=== PATIENT | female | born 1990 ===

== ENCOUNTER 2016-06-04 20:14 | Emergency (ER) | payer OTHER ==
[2016-06-04 20:27] VITALS: RESP 18
--- NOTE | 2016-06-04 21:08 | ED ---
Skin/Abscess/FB HPI - General Chief complaint: Skin/Abscess/Foreign Body Stated complaint: Abcess Time Seen by Provider: 06/04/16 20:55 Source: patient, RN notes reviewed Mode of arrival: ambulatory Limitations: no limitations - History of Present Illness Initial comments: Patient is a [age]-year-old female with a chief complaint of the lateral abscess. Patient reports that she's had a cyst there for many years that will come and go be coming chloe. Patient states that over the past few days she has been having a hard time finding a comfortable position due to the swelling and pain. Patient denies any fever or chills. She reports that she has never seen a physician or had this area drained. She has no ALLERGIES to antibiotics and has not been on anything recently. Patient denies any changes in urination or bowel movements. She denies any abdominal pain. - Related Data Home Medications Medication Instructions Recorded Confirmed ALPRAZolam [Xanax] 0.25 mg PO DAILY PRN 06/04/16 06/04/16 Albuterol Inhaler [Ventolin Hfa 1 - 2 puff INHALATION RT-Q6H PRN 06/04/16 Inhaler] DULoxetine HCL [Cymbalta] 30 mg PO DAILY 06/04/16 06/04/16 Previous Rx's Medication Instructions Recorded Acetaminophen-Codeine 300-30mg 1 tab PO Q4H PRN #15 tablet 06/04/16 [Tylenol #3] Sulfamethox-Tmp 800-160Mg [Bactrim 2 tab PO Q12HR 5 Days 06/04/16 DS 800-160 mg] Allergies Allergy/AdvReac Type Severity Reaction Status Date / Time No Known Allergies Allergy Verified 06/04/16 20:57 Review of Systems ROS Statement: Those systems with pertinent positive or pertinent negative responses have been documented in the HPI. ROS Other: All systems not noted in ROS Statement are negative. Past Medical History Additional Past Medical History / Comment(s): migraine History of Any Multi-Drug Resistant Organisms: None Reported Past Surgical History: Section Past Psychological History: Depression Smoking Status: Current every day smoker Past Alcohol Use History: Occasional Past Drug Use History: None Reported, Marijuana General Exam - General Exam Comments Initial Comments: Patient is a pleasant 25-year-old female. No distress. Limitations: no limitations General appearance: alert, in no apparent distress Head exam: Present: atraumatic, normocephalic, normal inspection Eye exam: Present: normal appearance, PERRL, EOMI. Absent: scleral icterus, conjunctival injection, periorbital swelling ENT exam: Present: normal exam, mucous membranes moist Neck exam: Present: normal inspection. Absent: tenderness, meningismus, lymphadenopathy Respiratory exam: Present: normal lung sounds bilaterally. Absent: respiratory distress, wheezes, rales, rhonchi, stridor Cardiovascular Exam: Present: regular rate, normal rhythm, normal heart sounds. Absent: systolic murmur, diastolic murmur, rubs, gallop, clicks GI/Abdominal exam: Present: soft, normal bowel sounds. Absent: distended, tenderness, guarding, rebound, rigid Extremities exam: Present: normal inspection, full ROM, normal capillary refill. Absent: tenderness, pedal edema, joint swelling, calf tenderness Back exam: Present: normal inspection Neurological exam: Present: alert, oriented X3, CN II-XII intact Psychiatric exam: Present: normal affect, normal mood Skin exam: Present: warm, dry, intact, normal color, erythema (Area of erythema and abscess over the left intergluteal cleft.). Absent: rash Course Vital Signs 06/04/16 06/04/16 20:24 22:37 Temperature 97.8 F 98.2 F Pulse Rate 71 75 Respiratory 18 18 Rate Blood Pressure 122/73 111/65 O2 Sat by Pulse 96 97 Oximetry Procedures - Incision & Drainage Site: buttock (Left intergluteal cleft.) Size (cm): 3 Anesthetic Used: benzocaine 0.25% Amount (mLs): 5 I&D Cleaning Method: Betadine Sterile Field Used?: Yes Scalpel Used: #11 I&D Drainage Obtained: Pus Packing: Iodoform Culture Obtained?: Yes Patient Tolerated Procedure: well, no complications Medical Decision Making - Medical Decision Making Patient is a 25 year old female with pilionidal abscess for 1 week. No fevers, chills, or other areas of abscess. PAtient abscess was incised and drained, significant amount of pus removed. Patient was packed with iodoform. Patient started on bactrim DS, and advised to follow up with PCP and surgeon. Patient agrees with treatment plan and will comply. REturn parameters discussed. Disposition Clinical Impression: Pilonidal abscess Disposition: HOME SELF-CARE Condition: Good Instructions: Abscess Incision and Drainage (ED) Additional Instructions: Patient advised to remove packing in approximately 2-3 days. Follow-up with primary care provider. Patient also advised to follow-up with surgeon. Complete antibiotic prescription and take pain medication as prescribed. Return to the emergency department if any alarming signs or symptoms occur. Prescriptions: Acetaminophen-Codeine 300-30mg [Tylenol #3] 1 tab PO Q4H PRN #15 tablet PRN Reason: Pain Sulfamethox-Tmp 800-160Mg [Bactrim DS 800-160 mg] 2 tab PO Q12HR 5 Days Referrals: Aris Saunders MD [Primary Care Provider] - 1-2 days Ashley Cole MD [STAFF PHYSICIAN] - 1-2 days Time of Disposition: 22:10
[2016-06-04] MEDS ORDERED: SULFAMETH-TMP DS STARTER PACK 2 TAB BTL PO STA (22:09)
[2016-06-04] MEDS ORDERED: ACET/COD 300 MG/30 MG STARTER PACK 6 TAB BTL PO STA (22:09)
[2016-06-04 22:38] VITALS: BP 111/65; PULSE 75; TEMP 98.2
== END 2016-06-04 22:38 | disposition home or self-care (01) ==
LOC: EC 20:14
DX: L05.01 Pilonidal cyst with abscess (principal); F32.9 Major depressive disorder, single episode, unspecified; F17.200 Nicotine dependence, unspecified, uncomplicated; Z79.899 Other long term (current) drug therapy
CPT/HCPCS: 10080; 87070; 87205; 99282

== ENCOUNTER 2016-10-03 14:27 | Inpatient (IN) | payer OTHER ==
[2016-10-03] MEDS ORDERED: KETOROLAC 30 MG/ML 1 ML VIAL IVP STA (14:37)
[2016-10-03] MEDS ORDERED: SODIUM CHLORIDE 0.9% 1,000 ML IV ONE (14:37)
[2016-10-03] MEDS ORDERED: diphenhydrAMINE 50 MG/ML 1 ML VIAL IVP STA (14:37)
[2016-10-03] MEDS ORDERED: METOCLOPRAMIDE 5 MG/ML 2 ML VIAL IVP STA (14:37)
--- NOTE | 2016-10-03 14:44 | ED ---
Headache HPI - General Chief Complaint: Headache Stated Complaint: Headache-13 wks preg Time Seen by Provider: 10/03/16 14:33 Mode of arrival: ambulatory Limitations: no limitations - History of Present Illness Initial Comments: This is a 26-year-old female with a history of migraines who presents emergency department for headache. The patient states that she has a headache every single day of her life however today it got worse. She states that she takes Excedrin Migraine and Motrin however this did not relieve her symptoms today. She describes it as a pressure-like sensation bilateral frontal and top of the head. She has associated photophobia and nausea. No vomiting. She has had CAT scans and MRIs in the past however does not follow with a neurologist. She is not taking any prescription medications for her migraines. Denies any focal neurologic deficits. No double vision. No focal weakness or numbness. No other complaints. - Related Data Home Medications Medication Instructions Recorded Confirmed No Known Home Medications [No 10/03/16 10/03/16 Known Home Medications] Allergies Allergy/AdvReac Type Severity Reaction Status Date / Time No Known Allergies Allergy Verified 10/03/16 15:24 Review of Systems ROS Statement: Those systems with pertinent positive or pertinent negative responses have been documented in the HPI. ROS Other: All systems not noted in ROS Statement are negative. Past Medical History Additional Past Medical History / Comment(s): migraine History of Any Multi-Drug Resistant Organisms: None Reported Past Surgical History: Section Past Psychological History: Depression Smoking Status: Current every day smoker Past Alcohol Use History: Occasional Past Drug Use History: None Reported, Marijuana General Exam - General Exam Comments Initial Comments: Constitutional: Awake alert Appears comfortable Head: Normocephalic atraumatic Eyes: no conjunctival injection No scleral icterus EOMI, pupils are 4 mm and reactive bilaterally Neck: No JVD Supple, no neck stiffness Heart: Regular rate rhythm normal S1-S2 no murmurs Lungs: Clear to auscultation bilaterally No wheezing No rales Abdomen: Soft nondistended nontender Extremities: Non edematous DP pulses intact Radial pulses intact Neuro: A&Ox3 cranial nerves II through XII are grossly intact, 5 out of 5 strength in upper and lower extremities bilaterally, sensation intact to light touch in all extremities, no ataxia Psych: Appropriate mood and affect Limitations: no limitations Course Vital Signs 10/03/16 10/03/16 10/03/16 14:30 15:22 16:30 Temperature 98.1 F 101.5 F H 99 F Pulse Rate 94 101 H 100 Respiratory 20 18 16 Rate Blood Pressure 124/58 131/70 110/59 O2 Sat by Pulse 99 99 99 Oximetry 10/03/16 10/03/16 10/03/16 17:06 18:14 18:31 Temperature 99.0 F Pulse Rate 104 H 102 H 102 H Respiratory 18 18 18 Rate Blood Pressure 108/52 116/64 122/66 O2 Sat by Pulse 99 99 99 Oximetry 10/03/16 20:00 Temperature Pulse Rate Respiratory Rate Blood Pressure 117/72 O2 Sat by Pulse Oximetry - Reevaluation(s) Reevaluation #1: 10/03/16 18:00 After multiple doses of medications for headache she states that she still has a headache. Patient refusing to urinate for a test. Added a beta Quant on her blood work. She needs a CT of her head. With her fever I need to evaluate her for meningitis. We will obtain an LP. After CT. Reevaluation #2: 10/03/16 18:38 The patient has a positive test. When I went and spoke to the patient she indicated to me that she was 13 weeks however had not told myself or the nurse previously. She states that she still is having a severe headache. After multiple medications I feel that the patient should be improved by now. If she still feels like she is having this bad of a headache we need to perform a CAT scan for further evaluation. I updated the patient about the risks and benefits of a CAT scan. She stated that she agreed to go through with it. Reevaluation #3: 10/03/16 19:44 Patient still complaining of a severe headache. She states that she is okay receiving another dose of morphine. I did state that whatever medication that she gets that the fetus will get. She states that she's having some much pain that she is willing to take the risk. I consented her for lumbar puncture. Reevaluation #4: 10/03/16 20:26 Attempted LP at bedside however was unable to obtain cerebral fluid. At this time the patient had a fever and severe headache and he did consider meningitis. I started her on vancomycin and Rocephin. I spoke with Dr. Saunders who accepts an observation admission with consultations to infectious disease and neurology. Medical Decision Making - Medical Decision Making Is a 26-year-old female presented emergency report for headache. Initially it seemed like this was a worsening migraine headache however the patient was then found to be febrile. She does have a mild leukocytosis however it's hard to determine if this is due to the or to infectious etiology. LP was unsuccessful. With high fever and headache meningitis is considered. Started on vancomycin and Rocephin. Will admit to the hospital for neuro and infectious disease consultation. - Lab Data Result diagrams: 10/03/16 15:45 10/03/16 15:45 Lab Results 10/03/16 10/03/16 10/03/16 Range/Units 15:45 15:45 15:45 WBC 13.2 H (3.8-10.6) k/uL RBC 4.35 (3.80-5.40) m/uL Hgb 12.2 (11.4-16.0) gm/dL Hct 37.1 (34.0-46.0) % MCV 85.1 (80.0-100.0) fL MCH 28.1 (25.0-35.0) pg MCHC 33.0 (31.0-37.0) g/dL RDW 15.0 (11.5-15.5) % Plt Count 276 (150-450) k/uL Neutrophils % 88 % Lymphocytes % 8 % Monocytes % 3 % Eosinophils % 1 % Basophils % 0 % Neutrophils # 11.5 H (1.3-7.7) k/uL Lymphocytes # 1.0 (1.0-4.8) k/uL Monocytes # 0.4 (0-1.0) k/uL Eosinophils # 0.1 (0-0.7) k/uL Basophils # 0.0 (0-0.2) k/uL Sodium 137 (137-145) mmol/L Potassium 3.9 (3.5-5.1) mmol/L Chloride 107 (98-107) mmol/L Carbon Dioxide 21 L (22-30) mmol/L Anion Gap 9 mmol/L BUN 3 L (7-17) mg/dL Creatinine 0.57 (0.52-1.04) mg/dL Est GFR (MDRD) Af Amer >60 (>60 ml/min/1.73 sqM) Est GFR (MDRD) Non-Af >60 (>60 ml/min/1.73 sqM) Glucose 87 (74-99) mg/dL Calcium 8.6 (8.4-10.2) mg/dL Total Bilirubin <0.1 L (0.2-1.3) mg/dL AST 13 L (14-36) U/L ALT 31 (9-52) U/L Alkaline Phosphatase 71 (38-126) U/L Total Protein 6.5 (6.3-8.2) g/dL Albumin 3.7 (3.5-5.0) g/dL HCG, Quant 20399.0 mIU/mL Urine Color Urine Appearance (Clear) Urine pH (5.0-8.0) Ur Specific [place] (1.001-1.035) Urine Protein (Negative) Urine Glucose (UA) (Negative) Urine Ketones (Negative) Urine Blood (Negative) Urine Nitrite (Negative) Urine Bilirubin (Negative) Urine Urobilinogen (<2.0) mg/dL Ur Leukocyte Esterase (Negative) Urine RBC (0-5) /hpf Urine WBC (0-5) /hpf Ur Squamous Epith Cells (0-4) /hpf Urine Bacteria (None) /hpf Urine HCG, Qual (Not Detectd) 10/03/16 10/03/16 Range/Units 18:15 18:15 WBC (3.8-10.6) k/uL RBC (3.80-5.40) m/uL Hgb (11.4-16.0) gm/dL Hct (34.0-46.0) % MCV (80.0-100.0) fL MCH (25.0-35.0) pg MCHC (31.0-37.0) g/dL RDW (11.5-15.5) % Plt Count (150-450) k/uL Neutrophils % % Lymphocytes % % Monocytes % % Eosinophils % % Basophils % % Neutrophils # (1.3-7.7) k/uL Lymphocytes # (1.0-4.8) k/uL Monocytes # (0-1.0) k/uL Eosinophils # (0-0.7) k/uL Basophils # (0-0.2) k/uL Sodium (137-145) mmol/L Potassium (3.5-5.1) mmol/L Chloride (98-107) mmol/L Carbon Dioxide (22-30) mmol/L Anion Gap mmol/L BUN (7-17) mg/dL Creatinine (0.52-1.04) mg/dL Est GFR (MDRD) Af Amer (>60 ml/min/1.73 sqM) Est GFR (MDRD) Non-Af (>60 ml/min/1.73 sqM) Glucose (74-99) mg/dL Calcium (8.4-10.2) mg/dL Total Bilirubin (0.2-1.3) mg/dL AST (14-36) U/L ALT (9-52) U/L Alkaline Phosphatase (38-126) U/L Total Protein (6.3-8.2) g/dL Albumin (3.5-5.0) g/dL HCG, Quant mIU/mL Urine Color Light Yellow Urine Appearance Clear (Clear) Urine pH 6.5 (5.0-8.0) Ur Specific [place] 1.003 (1.001-1.035) Urine Protein Negative (Negative) Urine Glucose (UA) Negative (Negative) Urine Ketones Negative (Negative) Urine Blood Trace H (Negative) Urine Nitrite Negative (Negative) Urine Bilirubin Negative (Negative) Urine Urobilinogen <2.0 (<2.0) mg/dL Ur Leukocyte Esterase Negative (Negative) Urine RBC 1 (0-5) /hpf Urine WBC 4 (0-5) /hpf Ur Squamous Epith Cells <1 (0-4) /hpf Urine Bacteria Rare H (None) /hpf Urine HCG, Qual Detected (Not Detectd) Disposition Clinical Impression: Intractable headache Disposition: ADMITTED IP TO THIS [facility] Condition: Stable
[2016-10-03 15:56] LABS: Basophils % (A) 0 %; CH 28.4; CHCM 33.5; Eosinophils # (A) 0.1 k/uL (0-0.7); Eosinophils % (A) 1 %; HCT 37.1 % (34.0-46.0); HDW 2.56; HGB 12.2 gm/dL (11.4-16.0); Luc # (Auto) 0.11; Luc % (Auto) 1; Lymphocytes % (A) 8 %; MCH 28.1 pg (25.0-35.0); MCV 85.1 fL (80.0-100.0); Mean Platelet Volume 7.3; Monocytes # (A) 0.4 k/uL (0-1.0); Monocytes % (A) 3 %; Neutrophils # (A) 11.5 k/uL (1.3-7.7); Neutrophils % (A) 88 %; RBC 4.35 m/uL (3.80-5.40); WBC 13.2 k/uL (3.8-10.6); WBC (Perox) 13.32
[2016-10-03 16:06] LABS: ALT 31 U/L (9-52); AST 13 U/L (14-36); Alkaline Phosphatase 71 U/L (38-126); Anion Gap 9 mmol/L; Blood Urea Nitrogen 3 mg/dL (7-17); Calcium 8.6 mg/dL (8.4-10.2); Carbon Dioxide 21 mmol/L (22-30); Chloride 107 mmol/L (98-107); Glucose 87 mg/dL (74-99); Non-African American GFR(MDRD) >60 (>60 ml/min/1.73 sqM); Potassium 3.9 mmol/L (3.5-5.1); Sodium 137 mmol/L (137-145); Total Bilirubin <0.1 mg/dL (0.2-1.3); Total Protein 6.5 g/dL (6.3-8.2)
[2016-10-03] MEDS ORDERED: MORPHINE SULFATE 4 MG/ML SYRINGE IVP STA ×2 (16:27→19:42)
[2016-10-03 18:22] LABS: Appearance,Urine Clear (Clear); Bacteria,Urine Rare /hpf; Bilirubin,Urine Negative (Negative); Glucose,Urine (UA) Negative (Negative); Ketones,Urine Negative (Negative); Leukocyte Esterase,Urine Negative (Negative); Nitrite,Urine Negative (Negative); PH, Urine 6.5 (5.0-8.0); Particle Count 1171; Protein,Urine Negative (Negative); RBC,Urine 1 /hpf (0-5); Specific Gravity,Urine 1.003 (1.001-1.035); Squamous Epithelial Cell,Urine <1 /hpf (0-4); UA Billing (MACRO vs. MICRO) MICRO; Urobilinogen,Urine <2.0 mg/dL (<2.0); WBC,Urine 4 /hpf (0-5)
--- NOTE | 2016-10-03 19:36 | CT ---
EXAMINATION TYPE: CT brain wo con DATE OF EXAM: 10/03/2016 COMPARISON: NONE HISTORY: Headaches since last night, currently late first trimester . CT DLP: 1052 mGycm. Automated Exposure Control for Dose Reduction was Utilized. Radiation risks explained to patient by emergency care physician prior to scanning. TECHNIQUE: CT scan of the head is performed without contrast. FINDINGS: There is no acute intracranial hemorrhage, mass effect, or midline shift identified. The ventricles and sulci are within normal limits in size. Gatica-white matter differentiation is maintai annelise. The globes are intact and the visualized sinuses are clear. Bilateral metallic ear ornaments are noted. IMPRESSION: No acute intracranial hemorrhage hemorrhage or midline shift is seen.
[2016-10-03] MEDS ORDERED: cefTRIAXone 2,000 MG in SODIUM CHLORIDE 0.9% 100 ML IVPB STA (20:18)
[2016-10-03] MEDS ORDERED: IV VANCOMYCIN PER PHARMACY 1 EACH MISC MISCELLANE PRN (20:18)
[2016-10-03] MEDS ORDERED: NALOXONE 0.4 MG/ML 1 ML VIAL IV PRN (20:25)
[2016-10-03] MEDS ORDERED: VANCOMYCIN 2,000 MG in SODIUM CHLORIDE 0.9% 500 ML IVPB ONE (21:00)
[2016-10-03] MEDS: ACETAMINOPHEN TAB 325 MG TAB PO PRN (22:11)
[2016-10-03] MEDS: SODIUM CHLORIDE 0.9% 1,000 ML IV SCH (23:35)
[2016-10-03] MEDS: ONDANSETRON 4 MG/2 ML VIAL IVP PRN (23:40)
[2016-10-04] MEDS ORDERED: ACETAMINOPHEN IV (For NPO) 1,000 MG in EMPTY BAG 1 BAG IVPB ONE (00:15)
[2016-10-04] MEDS: ACETAMINOPHEN TAB 325 MG TAB PO PRN ×4 (03:23→20:56)
[2016-10-04 04:15] LABS: Glucose,Whole Blood 112 mg/dL (75-99)
[2016-10-04] MEDS: SODIUM CHLORIDE 0.9% 1,000 ML IV SCH (05:27)
[2016-10-04] MEDS: VANCOMYCIN 1,750 MG in SODIUM CHLORIDE 0.9% 250 ML IVPB SCH ×2 (07:50→15:09)
[2016-10-04] MEDS: cefTRIAXone 2,000 MG in SODIUM CHLORIDE 0.9% 100 ML IVPB SCH ×2 (10:05→20:53)
[2016-10-04 12:30] LABS: Mean Platelet Volume 6.6
[2016-10-04 12:43] LABS: HSV I IgG Interp POSITIVE (NEGATIVE); HSV II IgG Interp NEGATIVE (NEGATIVE)
[2016-10-04 13:00] LABS: Prothrombin Time 10.5 sec (9.0-12.0)
--- NOTE | 2016-10-04 13:17 | P.OBCN ---
History of Present Illness Consult date: 10/04/16 Requesting physician: Aris Saunders Reason for consult: other (Incidental ) Chief complaint: Headache and and fever History of present illness: This is a 26 year old female 3 para 2 with an estimated date of confinement of 03/24/2017, estimated gestational age of 15-4/7 weeks, who presented to the emergency room after complaining of a headache for at least 2 days straight. She states the headache feels like a migraine and has not gone away despite taking [id number] Tylenol and Excedrin. She was seen in our office yesterday by the nurse and was instructed to go to the hospital if the headache was not resolving. She presented to the emergency room and was also found to be febrile. She is therefore admitted for evaluation of her headache and to rule out meningitis. She does state her roommate who also works as a nurse a day, home a couple days before her headache started and was complaining of not feeling well. Her roommate also has headaches but has not been as severe as hers. Her roommate is not . She states when the headache started she did have some vomiting and photophobia, but this has resolved. She states today her headache is slightly better than it was yesterday, but still present. She denies any problems. She has occasionally felt some movement. care has been with Dr. Rdz. Review of Systems Constitutional: Reports fever Eyes: bilateral photophobia Ears, nose, mouth and throat: Reports sinus pressure, Denies neck fullness/ pressure Gastrointestinal: Reports nausea, Reports vomiting, Denies abdominal pain Genitourinary: Reports , Denies pelvic pain Musculoskeletal: Denies neck stiffness Neurological: Reports headaches, Reports migraines Past Medical History Past Medical History: Asthma, Sleep Apnea/CPAP/BIPAP Additional Past Medical History / Comment(s): migraines, pilonidal abcess, anx/ depression. pt is "13 weeks " History of Any Multi-Drug Resistant Organisms: None Reported Past Surgical History: Section Additional Past Surgical History / Comment(s): uppp sx for sleep apnea Past Anesthesia/Blood Transfusion Reactions: Postoperative Nausea & Vomiting ( PONV) Smoking Status: Former smoker - Past Family History Father Family Medical History: Unable to Obtain Additional Family Medical History / Comment(s): pt was adopted Mother Family Medical History: Unable to Obtain Additional Family Medical History / Comment(s): pt was adopted Medications and Allergies Home Medications Medication Instructions Recorded Confirmed Type No Known Home Medications [No 10/03/16 10/03/16 History Known Home Medications] Allergies Allergy/AdvReac Type Severity Reaction Status Date / Time No Known Allergies Allergy Verified 10/03/16 15:24 Exam Osteopathic Statement: *. No significant issues noted on an osteopathic structural exam other than those noted in the History and Physical/Consult. - Vital Signs Vital signs: Vital Signs Temp Pulse Pulse Resp BP BP Pulse Ox 10/04/16 11:25 97.1 F L 92 18 112/60 96 10/04/16 08:00 18 10/04/16 07:00 99.1 F 92 18 112/60 96 10/04/16 04:45 100.9 F H 10/04/16 00:45 101.3 F H 10/03/16 22:58 102.9 F H 108 H 16 123/61 99 10/03/16 21:48 102.4 F H 100 18 152/68 100 10/03/16 20:00 117/72 10/03/16 18:31 102 H 18 122/66 99 10/03/16 18:14 99.0 F 102 H 18 116/64 99 10/03/16 17:06 104 H 18 108/52 99 10/03/16 16:30 99 F 100 16 110/59 99 10/03/16 15:22 101.5 F H 101 H 18 131/70 99 10/03/16 14:30 98.1 F 94 20 124/58 99 Intake and Output 10/03/16 10/04/16 10/04/16 22:59 06:59 14:59 Intake Total 100 1450 Balance 100 1450 Intake: Intake, IV Titration 100 650 Amount Sodium Chloride 0.9% 1, 300 000 ml @ 100 mls/hr IV . Q10H MARIELLE Rx#:[id number] Vancomycin 1,750 mg In 250 Sodium Chloride 0.9% 250 ml @ 125 mls/hr IVPB Q8H MARIELLE Rx#:[id number] cefTRIAXone 2,000 mg In 100 100 Sodium Chloride 0.9% 100 ml @ 100 mls/hr IVPB Q12HR MARIELLE Rx#:[id number] Oral 800 Other: Voiding Method Toilet # Voids 1 2 # Bowel Movements 1 # Emeses 2 Weight 108.182 kg No physical exam is necessary obstetrically. Results Result Diagrams: 10/04/16 12:18 10/03/16 15:45 Abnormal Lab Results - Last 24 Hours (Table) 10/03/16 10/03/16 10/03/16 Range/Units 15:45 15:45 18:15 WBC 13.2 H (3.8-10.6) k/uL Neutrophils # 11.5 H (1.3-7.7) k/uL Carbon Dioxide 21 L (22-30) mmol/L BUN 3 L (7-17) mg/dL POC Glucose (mg/dL) (75-99) mg/dL Total Bilirubin <0.1 L (0.2-1.3) mg/dL AST 13 L (14-36) U/L Urine Blood Trace H (Negative) Urine Bacteria Rare H (None) /hpf 10/04/16 Range/Units 04:09 WBC (3.8-10.6) k/uL Neutrophils # (1.3-7.7) k/uL Carbon Dioxide (22-30) mmol/L BUN (7-17) mg/dL POC Glucose (mg/dL) 112 H (75-99) mg/dL Total Bilirubin (0.2-1.3) mg/dL AST (14-36) U/L Urine Blood (Negative) Urine Bacteria (None) /hpf Microbiology - Last 24 Hours (Table) 10/03/16 18:15 Urine Culture - Preliminary Urine,Voided Assessment and Plan (1) 15 weeks gestation of Status: Acute (2) Intractable headache Status: Acute Plan: I recommend heart tones by Doppler daily. MRI is acceptable without contrast. Spinal tap is acceptable without any fluoroscopy. Prophylactic antibiotics are acceptable at this stage. Once discharged she may follow back up with Dr. Rdz for her routine care. If there are any further questions regarding what is safe in , please do not hesitate to contact us.
--- NOTE | 2016-10-04 14:18 | P.PCN ---
Date of Procedure: 10/04/16 Preoperative Diagnosis: Postoperative Diagnosis: Procedure(s) Performed: Implants: Surgeon: Bennie Aranda Pathology: none sent Condition: stable Disposition: PACU Indications for Procedure: Operative Findings: Description of Procedure: PREOPERATIVE DIAGNOSIS: 1-migraine 2-r/o meningitis POSTOPERATIVE DIAGNOSIS: same PROCEDURE 1. Diagnostic lumbar puncture ANESTHESIA: Local with 1% lidocaine EBL: Minimal PROCEDURE INDICATION: The patient is a 26-year-old female with a history of persistent headaches who is morbidly obese and approximately 13 weeks . Given frequency and severity of headaches, anesthesia service was consulted for diagnostic lumbar puncture due to concern for viral meningitis. Patient was seen by obstetric service who noted that use of fluoroscopy was contraindicated given IUP. LP was attempted in the emergency room yesterday but was unsuccessful. No use of blood thinners. PROCEDURE DESCRIPTION / TECHNIQUE: The patient was seen and identified on the medical floor. Risks, benefits, complications, and alternatives were discussed with the patient, including but not limited to bleeding, infection, nerve damage, allergic reactions to medications, postdural puncture headache and inability to complete the procedure. The patient agreed to proceed with the procedure and signed the consent after all questions were answered. Vital signs were stable. Time out was completed to confirm patient position, procedure, and allergies to medications. The patient was placed in the sitting position on procedure table with help from nursing staff. The lumbosacral area was prepped in the usual sterile fashion. After localization with 1% lidocaine, a 22-gauge 5-inch spinal needle was placed in the L3-L4 interspace, but no fluid could be obtained. I attempted this procedure multiple times at three different vertebral levels, and during my last attempt at L5-S1, the patient did have a right lower extremity paresthesia. When there was still no cerebrospinal fluid present in the needle despite this paresthesia, the procedure was aborted. COMPLICATIONS: None COMMENTS: None DISPOSITION / PLANS: The patient was placed in a supine position and transferred to the recovery area in a stable condition for observation. A fluid bolus was ordered to help prevent against postdural puncture headache. There was no evidence of lower extremity motor or sensory deficit after the procedure. The patient will return to the care of the hospitalists. At this point, with two practitioners having failed lumbar puncture via landmark approach despite the presence of a paresthesia, performing this procedure under some sort of image guidance (ultrasound vs. fluoroscopy) is likely indicated. Would recommend consultation with interventional radiology service to assess the possibility of ultrasound use as OB service has stated that fluoroscopy should not be used. Please call back with any further questions.
[2016-10-04] MEDS ORDERED: SODIUM CHLORIDE 0.9% 1,000 ML IV ONE (14:36)
--- NOTE | 2016-10-04 16:27 | P.HPIM ---
History of Present Illness H&P Date: 10/04/16 Chief Complaint: Headache 26-year-old female presented to the emergency room to be evaluated for chief complaint of developing a headache. Patient stated it started several days prior. She states she has a history of migraines the first the headache felt like a migraine but would not go away. Patient stated that she did use over-the -counter Tylenol and Excedrin with caffeine. Not helped the headache. Patient states that her roommate for the last several days had been having upper respiratory symptoms and had been complaining of not feeling well and also had a headache but the headache was not as severe as her headache. It's noted that the patient is she 3 para 2 estimated date of confinement 03/24 gestation estimated age 15 weeks patient states headache is causing a sensation of nausea with photophobia. Patient's care has been by Dr. Rdz. In the emergency room the temp was 101.5. In the 100s. CAT scan of the brain was negative. In the emergency room attempted LP at the bedside was not able to obtain spinal fluid patient continued to have fever severe headache there was a consideration for meningitis the patient was started on IV vancomycin and Rocephin admitted to the services of the attending. OBG right in consultation requested as well as a neurology and infectious disease patient denied any burning on urination frequency urgency denied any nausea vomiting when questioning Review of Systems Essentially unremarkable except as mentioned in the present illness Past Medical History Past Medical History: Asthma, Sleep Apnea/CPAP/BIPAP Additional Past Medical History / Comment(s): migraines, pilonidal abcess, anx/ depression. pt is "13 weeks " History of Any Multi-Drug Resistant Organisms: None Reported Past Surgical History: Section Additional Past Surgical History / Comment(s): uppp sx for sleep apnea Past Anesthesia/Blood Transfusion Reactions: Postoperative Nausea & Vomiting ( PONV) Smoking Status: Former smoker - Past Family History Father Family Medical History: Unable to Obtain Additional Family Medical History / Comment(s): pt was adopted Mother Family Medical History: Unable to Obtain Additional Family Medical History / Comment(s): pt was adopted Medications and Allergies Home Medications Medication Instructions Recorded Confirmed Type No Known Home Medications [No 10/03/16 10/03/16 History Known Home Medications] Allergies Allergy/AdvReac Type Severity Reaction Status Date / Time No Known Allergies Allergy Verified 10/03/16 15:24 Physical Exam Vitals: Vital Signs Temp Pulse Pulse Resp BP BP Pulse Ox 10/04/16 11:25 97.1 F L 92 18 112/60 96 10/04/16 08:00 18 10/04/16 07:00 99.1 F 92 18 112/60 96 10/04/16 04:45 100.9 F H 10/04/16 00:45 101.3 F H 10/03/16 22:58 102.9 F H 108 H 16 123/61 99 10/03/16 21:48 102.4 F H 100 18 152/68 100 10/03/16 20:00 117/72 10/03/16 18:31 102 H 18 122/66 99 10/03/16 18:14 99.0 F 102 H 18 116/64 99 10/03/16 17:06 104 H 18 108/52 99 10/03/16 16:30 99 F 100 16 110/59 99 Intake and Output 10/04/16 10/04/16 10/04/16 06:59 14:59 22:59 Intake Total 1450 Balance 1450 Intake: Intake, IV Titration 650 Amount Sodium Chloride 0.9% 1, 300 000 ml @ 100 mls/hr IV . Q10H MARIELLE Rx#:[id number] Vancomycin 1,750 mg In 250 Sodium Chloride 0.9% 250 ml @ 125 mls/hr IVPB Q8H MARIELLE Rx#:[id number] cefTRIAXone 2,000 mg In 100 Sodium Chloride 0.9% 100 ml @ 100 mls/hr IVPB Q12HR MARIELLE Rx#:[id number] Oral 800 Other: Voiding Method Toilet # Voids 1 2 # Bowel Movements 1 # Em[place] 2 Physical exam [id number] resting in bed appears in no acute distress oriented 3 states headache is improving denies any blurred vision denies photophobia denies light sensitivity states that has improved. VITAL SIGNS: Reviewed HEENT: Head is normocephalic and atraumatic. Pupils are equal and reactive. The nares are patent. Oropharynx is clear without lesions. NECK: Supple without lymphadenopathy. Traches midline. HEART: S1, S2. Regular rate and rhythm. No murmur noted LUNGS: No crackles or wheezes are heard. Adequate air movement bilaterally ABDOMEN: Soft, nontender, nondistended with good bowel sounds. No peritoneal signs. No palpable organomegaly or masses. EXTREMITIES: Normal skin color and turgor. No cyanosis, rash, ulceration, clubbing or edema. Radial pedal pulses are 2/4 bilaterally. NEUROLOGICAL: No focal deficits. Strength and sensation are grossly intact. Results CBC & Chem 7: 10/04/16 12:18 10/03/16 15:45 Labs: Abnormal Lab Results - Last 24 Hours (Table) 10/03/16 10/03/16 10/03/16 Range/Units 15:45 18:15 23:32 Carbon Dioxide 21 L (22-30) mmol/L BUN 3 L (7-17) mg/dL POC Glucose (mg/dL) (75-99) mg/dL Total Bilirubin <0.1 L (0.2-1.3) mg/dL AST 13 L (14-36) U/L Urine Blood Trace H (Negative) Urine Bacteria Rare H (None) /hpf HSV I IgG Interpret POSITIVE H (NEGATIVE) 10/04/16 Range/Units 04:09 Carbon Dioxide (22-30) mmol/L BUN (7-17) mg/dL POC Glucose (mg/dL) 112 H (75-99) mg/dL Total Bilirubin (0.2-1.3) mg/dL AST (14-36) U/L Urine Blood (Negative) Urine Bacteria (None) /hpf HSV I IgG Interpret (NEGATIVE) Microbiology - Last 24 Hours (Table) 10/03/16 18:15 Urine Culture - Preliminary Urine,Voided Thrombosis Risk Factor Assmnt - Choose All That Apply Any of the Below Risk Factors Present?: Yes Each Factor Represents 1 point: Obesity (BMI >25) Other Risk Factors: No Other congenital or acquired thrombophilia - If yes, enter type in comment: No Thrombosis Risk Factor Assessment Total Risk Factor Score: 1 Thrombosis Risk Factor Assessment Level: Low Risk Assessment and Plan Plan: Impression Present on admission intractable headache unclear etiology Present on admission febrile tachycardic leukocytosis suspect sepsis unclear etiology Attempted lumbar puncture unsuccessful 15 week gestation of Current every day smoker History of migraines Plan Continue the recommendations by CUSTOMER SERVICE OFFICER Await infectious disease input pending await neurology's input pending IV antibiotics as ordered prophylactic antibiotics are acceptable at this stage per CUSTOMER SERVICE OFFICER's recommendations DVT and GI prophylaxis MRI except will without contrast per CUSTOMER SERVICE OFFICER's recommendations CUSTOMER SERVICE OFFICER recommends heart tones doppler daily Follow-up on pending cultures The above impression and plan of care have been discussed and directed by signing physician. Kelsey Tan nurse practitioner acting as scribe for signing physician.
[2016-10-04 16:46] VITALS: RESP 16
--- NOTE | 2016-10-04 21:14 | MR ---
EXAMINATION TYPE: MR brain wo con DATE OF EXAM: 10/04/2016 COMPARISON: CT brain from yesterday. HISTORY: Patient having headache since last night and nothing takes it away. Patient is 13 weeks preg nant, risks explained by ER per patient. Patient shielded both top and bottom. Patient has both dath' s pierced, cannot remove rings. TECHNIQUE: Multiplanar, multisequence imaging of the brain and brainstem is performed without IV cont rast. FINDINGS: Diffusion weighted images demonstrate no evidence of a recent infarct or other diffusion abnormality. There is no worrisome extra-axial fluid collection. The ventricular system and cisternal spaces are normal in size and appearance. The brain volume is age appropriate. There are 3-6 scattered punctate foci of T2 hyperintensity measuring 3 mm or smaller in size, for reference is persistent 2 mm lesion left parietal lobe on axial image 20. Midline structures demonstrate normal morphology. The craniocervical junction appears within normal limits. Normal vascular flow voids are present. The visualized sinuses are clear and the globes are i ntact. IMPRESSION: Mild to minimal nonspecific white matter changes otherwise unremarkable study. No suspici ous edema noted.
--- NOTE | 2016-10-04 21:17 | MR ---
EXAMINATION TYPE: MR angio head wo con DATE OF EXAM: 10/04/2016 COMPARISON: Same day MRI brain. CT brain one day earlier. HISTORY: Patient having headache since last night and nothing takes it away. Patient is 13 weeks preg nant, risks explained by ER per patient. Patient shielded both top and bottom. Patient has both dath' s pierced, cannot remove rings. TECHNIQUE: Time of flight images focusing on the [place] were performed without contrast.. 2-D and 3-D postprocessing imaging is performed. FINDINGS: There is slightly more dominant or prominent left vertebral artery. Vertebral arteries are patent to basilar junction. There are small caliber but patent posterior communicating arteries bilat erally. No significant stenosis or aneurysmal change is seen. Images of the anterior circulation show no significant focal stenosis or aneurysmal change. There is patent small caliber short segment anterior communicating artery noted. IMPRESSION: No significant focal stenosis or aneurysmal change at the level of [place].
[2016-10-04] MEDS: ACYCLOVIR SODIUM 1,000 MG in SODIUM CHLORIDE 0.9% 250 ML IV SCH (23:04)
--- NOTE | 2016-10-04 23:07 | CONS ---
DATE OF CONSULTATION: 10/04/2016 REASON FOR CONSULTATION: Possible meningitis. HISTORY OF PRESENT ILLNESS: The patient is a 26-year-old female who is currently 13 weeks . She presented to the ER at [facility] last evening with the chief complaints of headache. The patient's symptoms have been getting worse for the last 24 hours. Headache has been severe, throbbing, almost 10 out of 10. The patient denies any associated photophobia, nausea or vomiting. No significant chest pain, shortness of breath or cough. No abdominal pain. No diarrhea. No constipation. No urinary symptoms. No joint swelling. No rash. The patient did have a CT of the brain that was negative for any bleed. Patient with a fever of 101.5 to 102.9 to be the maximum. ER physician tried to do an LP; however, he was unsuccessful. Interventional Radiology was consulted for the same. The patient did have a UA that was negative. ID was consulted for further recommendations. The patient was treated with a dose of Rocephin and ( ) continue vancomycin. I was able to add the Rocephin last night. As of this morning the patient feels better and has improved. She did mention that her headache is slightly improved as well. The patient denies significant chest pain or shortness of breath or cough and no nausea or vomiting or any diarrhea. REVIEW OF SYSTEMS: CONSTITUTIONAL: Positive for weakness along with a fever. EYES: No complaint. ENT: No complaint. RESPIRATORY: No complaint. CARDIOVASCULAR: No complaint. GENITOURINARY: No complaint. GASTROINTESTINAL: No complaint. MUSCULOSKELETAL: No complaint. INTEGUMENTARY: No complaint. PSYCHOLOGIC: No complaint. ENDOCRINE: No complaint. NEUROLOGIC: As per HPI. PAST MEDICAL HISTORY: Migraine headaches and depression. PAST SURGICAL HISTORY: . SOCIAL HISTORY: Positive for current everyday smoking. Patient ( ) marijuana use. FAMILY HISTORY: No pertinent findings were noticed. ALLERGIES: NO KNOWN DRUG ALLERGIES. Medications currently include: 1. Tylenol. 2. Rocephin 2 grams q.12. 3. Vancomycin; Pharmacy to dose. 4. Narcan. 5. Zofran. On examination, her blood pressure is 124/60 with a pulse of 92, temperature 97.1. She is 96% on room air. General description is a middle-aged female lying in bed in no distress. No tachypnea or accessory muscle of respiration use. HEENT examination shows no pallor or scleral icterus. Oral mucous membrane is dry. NECK: Trachea is central. No thyromegaly. LUNGS: Unlabored breathing. Clear to auscultation anteriorly. No wheeze or crackle. HEART: S1, S2. Regular rate and rhythm. No added sound. ABDOMEN: Soft. No tenderness. No guarding or rigidity. EXTREMITIES: No edema of the feet. SKIN EXAMINATION: No rash or mass palpable. Neurologically patient is awake, alert, oriented x3. There are no signs of any meningeal irritation. Neck was soft. No rigidity. LABS: Hemoglobin is 12.3, white count 13.2 with a BUN of 3, creatinine 0.57. Liver enzymes were normal. Urine has been negative. DIAGNOSTIC IMPRESSION AND PLAN: Patient admitted to hospital with sepsis in a patient who did have fever and elevated white count. Source could be more likely aseptic meningitis. Clinically doubt bacterial meningitis; however, it cannot be entirely excluded ( ) look toxic and no evidence of any neck rigidity in a patient with no other clinical focus of infection. Lungs were clear to auscultation. UA was negative. No evidence of any cellulitis or joint swelling. PLAN: 1. LP should be obtained STAT. This has been communicated to the RN. If Interventional Radiology is unable to do it, Anesthesia should do it, and the fluid should be sent for cell count, Gram stain, protein and glucose. 2. Will keep the patient on Rocephin and vancomycin; however, if the LP comes back negative, antibiotic can be safely discontinued and patient will continue on symptomatic treatment. 3. Will follow up on the clinical condition and culture to further adjust medication if needed. Thank you for this consultation. Will follow this patient along with you. ISABELL
[2016-10-05 00:25] VITALS: PULSE 77
[2016-10-05] MEDS: VANCOMYCIN 1,750 MG in SODIUM CHLORIDE 0.9% 250 ML IVPB SCH ×2 (01:23→12:15)
[2016-10-05] MEDS: ACETAMINOPHEN TAB 325 MG TAB PO PRN (02:43)
[2016-10-05] MEDS: ONDANSETRON 4 MG/2 ML VIAL IVP PRN (03:42)
[2016-10-05] MEDS ORDERED: VANCOMYCIN TROUGH DUE 1 EACH MISC MISCELLANE ONE (07:00)
[2016-10-05] MEDS: SODIUM CHLORIDE 0.9% 1,000 ML IV SCH ×3 (07:47→12:18)
[2016-10-05 07:50] VITALS: BP 98/57; TEMP 97.2
[2016-10-05] MEDS: ACYCLOVIR SODIUM 1,000 MG in SODIUM CHLORIDE 0.9% 250 ML IV SCH (08:05)
[2016-10-05 08:49] LABS: Basophils % (A) 0 %; CH 28.2; CHCM 33.1; Eosinophils # (A) 0.1 k/uL (0-0.7); Eosinophils % (A) 1 %; HCT 32.5 % (34.0-46.0); HDW 2.67; HGB 10.3 gm/dL (11.4-16.0); Luc % (Auto) 1; Lymphocytes # (A) 2.2 k/uL (1.0-4.8); Lymphocytes % (A) 28 %; MCH 27.1 pg (25.0-35.0); MCHC 31.6 g/dL (31.0-37.0); MCV 85.7 fL (80.0-100.0); Mean Platelet Volume 7.2; Monocytes # (A) 0.2 k/uL (0-1.0); Monocytes % (A) 3 %; Neutrophils # (A) 5.2 k/uL (1.3-7.7); Neutrophils % (A) 67 %; RBC 3.79 m/uL (3.80-5.40); RDW 14.9 % (11.5-15.5); WBC 7.8 k/uL (3.8-10.6); WBC (Perox) 8.35
[2016-10-05 09:19] LABS: ALT 33 U/L (9-52); AST 12 U/L (14-36); Alkaline Phosphatase 55 U/L (38-126); Anion Gap 7 mmol/L; Blood Urea Nitrogen 2 mg/dL (7-17); Calcium 8.1 mg/dL (8.4-10.2); Carbon Dioxide 20 mmol/L (22-30); Chloride 113 mmol/L (98-107); Glucose 66 mg/dL (74-99); Non-African American GFR(MDRD) >60 (>60 ml/min/1.73 sqM); Potassium 3.7 mmol/L (3.5-5.1); Sodium 140 mmol/L (137-145); Total Bilirubin <0.1 mg/dL (0.2-1.3); Total Protein 5.3 g/dL (6.3-8.2)
[2016-10-05] MEDS: cefTRIAXone 2,000 MG in SODIUM CHLORIDE 0.9% 100 ML IVPB SCH (10:57)
[2016-10-05] MEDS ORDERED: PRENATAL VIT-IRON-FOLIC ACID 1 EACH CAP PO SCH (12:00)
--- NOTE | 2016-10-05 13:33 | CONS ---
DATE OF CONSULTATION: 10/04/2016 CHIEF COMPLAINT: Headache. HISTORY OF PRESENT ILLNESS: The patient is a 26-year-old female who is being evaluated by the Neurology Service per the request of Dr. Aris Saunders for a headache. The patient states that she has history of headaches but during this , she has had a headache on a daily basis. The patient is currently 13 weeks . She has been taking multiple xwmq-qer-pemxsiy medications with no improvements in the headaches. More recently, she has been having a fever at home. She was brought into [facility] Emergency Room for further evaluation. In the Emergency Room, her temperature was elevated at 101.5. Anesthesiology was consulted for a lumbar puncture and multiple attempts were made to perform the procedure but no spinal fluid was obtained. Infectious Disease has been consulted and Dr. Felipe did start the patient on vancomycin and Rocephin. The patient denies any recent travel but states that she has been in contact with her roommate who has been feeling ill lately. She denies any neck stiffness. She describes her headache as a throbbing pain that is mostly in the frontal region and she rates it at 7/10 in intensity at the time of my evaluation. She is receiving Tylenol as needed. A CT scan of the brain was done in the Emergency Room which was normal. I did order an MRI/MRA of the brain and the test was just completed but the results are pending at this time. Her CBC showed mild leukocytosis at 13.2 with an elevated neutrophil at 11.5. Her comprehensive metabolic profile was normal. 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 PAST MEDICAL HISTORY: Asthma, obstructive sleep apnea, migraine headaches, depression, history of . SOCIAL HISTORY: The patient is a former smoker. She denies any alcohol or drug use. FAMILY HISTORY: The patient was adopted and her family history is unknown. HOME MEDICATIONS: Reviewed in the chart. ALLERGIES: No known drug allergies. REVIEW OF SYSTEMS: CONSTITUTIONAL: As mentioned above. EYES: Positive for photophobia. ENT: Negative. CARDIOVASCULAR: Negative. RESPIRATORY: Positive for occasional shortness of breath and wheezing. NEUROLOGICAL: As mentioned above. She denies any lateralizing numbness or weakness. GASTROINTESTINAL: Negative. GENITOURINARY: Negative. PSYCHIATRIC: Negative. ENDOCRINE: Negative. NEUROLOGICAL: As mentioned above. MUSCULOSKELETAL: Negative. PHYSICAL EXAM: Vital signs show a temperature of 97.2, pulse 99, respirations 16, blood pressure 120/65. GENERAL APPEARANCE: The patient is a well-developed female who appears to be in no acute distress. HEENT: Normocephalic, atraumatic, no facial asymmetry is seen. Extraocular muscle are intact. No tenderness to palpation is felt along the occipital nerve regions. Neck is supple with no masses felt. CARDIOVASCULAR: Regular rate and rhythm. ABDOMEN: Nontender, nondistended. EXTREMITIES: Showed no edema or clubbing. NEUROLOGICAL EXAM: The patient is alert, aware and oriented x3. Speech and language are normal. Strength is full in all 4 extremities. No pronator drift is seen. Sensory exam was normal to light touch in all 4 extremities. No facial asymmetry is seen on cranial nerve testing. No tremors or seizure-like activity is seen. IMPRESSION: 1. Intractable headache. 2. Fever. 3. Leukocytosis. 4. Herpes simplex virus, abnormal serology. 5. state. RECOMMENDATION: The patient continues to have an intractable headache and multiple attempts have been made to obtain spinal fluid for testing have failed. The patient is being evaluated by Dr. Felipe from Infectious Disease and she has already been started on vancomycin and Rocephin. The patient's chronicity of her headache and her fever and leukocytosis are concerning for intracranial infection. The patient is already on antibiotic therapy but I will add acyclovir 10 mg/kg every 8 hours IV due to her abnormal HSV serology test. Treatment should continue for 21 days. If the patient is to be discharged, I recommend oral acyclovir at 800 mg every 6 hours. Continue analgesics as needed with Tylenol. Continue neuro checks. I will continue to follow with you. Further recommendations to follow. Thank you, Dr. Saunders for allowing me to participate in the care of your patient. If you have any questions, please feel free to contact me. ISABELL
--- NOTE | 2016-10-05 14:31 | P.DS ---
Providers Date of admission: 10/04/16 15:23 Expected date of discharge: 10/05/16 Attending physician: Aris Saunders Consults: 10/03/16 20:23 Consult Physician Routine Consulting Provider: Hiwot Felipe Consult Reason/Comments: Headache Fever Do you want consulting provider notified?: Yes, Notify in am 10/03/16 20:24 Consult Physician Routine Consulting Provider: Caro Perez Consult Reason/Comments: Headache during Do you want consulting provider notified?: Yes, Notify in am 10/04/16 11:43 Consult Physician Urgent Consulting Provider: Kilo Rdz Consult Reason/Comments: 13 weeks , fever/BLANCHARD, r/o meningitis Do you want consulting provider notified?: Yes 10/04/16 12:16 Consult Anesthesia Routine Consulting Provider: Anesthesia,Services Consult Reason/Comments: spinal tap, R/O meningitis Primary care physician: [facility] Course: 26-year-old female presented to the emergency room to be evaluated for chief complaint of developing a headache. Patient stated it started several days prior. She states she has a history of migraines the first the headache felt like a migraine but would not go away. Patient stated that she did use over-the -counter Tylenol and Excedrin with caffeine. Not helped the headache. Patient states that her roommate for the last several days had been having upper respiratory symptoms and had been complaining of not feeling well and also had a headache but the headache was not as severe as her headache. It's noted that the patient is she 3 para 2 estimated date of confinement 03/24 gestation estimated age 15 weeks patient states headache is causing a sensation of nausea with photophobia. Patient's care has been by Dr. Rdz. In the emergency room the temp was 101.5. In the 100s. CAT scan of the brain was negative. In the emergency room attempted LP at the bedside was not able to obtain spinal fluid patient continued to have fever severe headache there was a consideration for meningitis the patient was started on IV vancomycin and Rocephin admitted to the services of the attending. OBG right in consultation requested as well as a neurology and infectious disease patient denied any burning on urination frequency urgency denied any nausea vomiting when questioning patient's CBC showed mild leukocytosis at 13.2. Comprehensive metabolic profile was normal. 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 Patient was started on appropriate therapy. Patient did have an MRI and MRA of the brain were unremarkable. Patient's symptoms significantly improved patient was asking to be discharged home Patient was seen by Dr. Brandt SCRUBBER MACHINE TENDER for recommendations regarding the and treatment plan who indicated that prophylactic antibiotics were acceptable at this stage the any further questionings regarding what was safe in were discussed with SCRUBBER MACHINE TENDER Dr. 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 Kelsey Tan nurse practitioner acting as scribe for signing physician. Patient Condition at Discharge: Stable Plan - Discharge Summary New Discharge Prescriptions: New Acyclovir [Zovirax] 800 mg PO Q6H #160 tab Dui-Rzqf-Quqiy Acid [-U Capsule (formulary)] 1 each PO DAILY @1200 cap Discharge Medication List Acyclovir [Zovirax] 800 mg PO Q6H #160 tab 10/05/16 [Rx] Ucl-Ffhx-Etinq Acid [-U Capsule (formulary)] 1 each PO DAILY@ 1200 cap 10/05/16 [Rx] Follow up Appointment(s)/Referral(s): Aris Saunders MD [Primary Care Provider] - 10/08/16 Caro Perez MD [STAFF PHYSICIAN] - 1 Week Patient Instructions/Handouts: Migraine Headache (GEN) Activity/Diet/Wound Care/Special Instructions: Regular diet. Activity as tolerated. Discharge Disposition: HOME SELF-CARE
[2016-10-05] MEDS ORDERED: VANCOMYCIN 2,000 MG in SODIUM CHLORIDE 0.9% 500 ML IVPB SCH (18:00)
--- NOTE | 2016-10-06 09:32 | PN ---
DATE OF SERVICE: 10/05/2016 REASON FOR FOLLOW UP: Possible aseptic meningitis. INTERVAL HISTORY: The patient is afebrile. She is feeling much better, back to normal. The patients headache has completely resolved. No photophobia. No nausea. No abdominal pain. No nausea, no vomiting or any diarrhea. Patient is insisting on going home. On examination: Blood pressure 92/57 with pulse 77. Temperature 97.2. She is 97 % on room air. General description is a young female up in the bed in no distress. RESPIRATORY: Unlabored breathing. Clear to auscultation anteriorly. HEART: S1, S2 regular rate and rhythm. ABDOMEN: Soft, no tenderness. LABS: Hemoglobin 10.1, white count 7.8 with BUN 2, creatinine 0.50. DIAGNOSTIC IMPRESSION AND PLAN: Patient in the hospital with fever and headache likely representing aseptic meningitis. Treatment should be symptomatic. Antibiotic will be discontinued. Patient insisting on going home and has been advised if any recurrence of fever or headache to call us right away and follow up in the office next week. Continue supportive care. ISABELL
== END 2016-10-05 16:16 | disposition home or self-care (01) | DRG 781 ==
LOC: EC 14:27 → 4MS4W 20:25 → OBSVTOIN 10-04 15:23 → 4MS4W 10-04 18:29
PROVIDERS: ADMIT Family Medicine; ATTEND Family Medicine
DX: O98.512 Other viral diseases complicating pregnancy, second trimester (principal); A41.9 Sepsis, unspecified organism; O99.322 Drug use complicating pregnancy, second trimester; O99.352 Diseases of the nervous system complicating pregnancy, second trimester; E66.01 Morbid (severe) obesity due to excess calories; B00.9 Herpesviral infection, unspecified; O99.332 Smoking (tobacco) complicating pregnancy, second trimester; O99.212 Obesity complicating pregnancy, second trimester; G47.33 Obstructive sleep apnea (adult) (pediatric); G43.909 Migraine, unspecified, not intractable, without status migrainosus; O99.512 Diseases of the respiratory system complicating pregnancy, second trimester; F12.90 Cannabis use, unspecified, uncomplicated; F17.200 Nicotine dependence, unspecified, uncomplicated; Z3A.15 15 weeks gestation of pregnancy; Z86.59 Personal history of other mental and behavioral disorders; Z86.19 Personal history of other infectious and parasitic diseases; Z87.09 Personal history of other diseases of the respiratory system
CPT/HCPCS: 36415; 70450; 70544; 70551; 80053; 80202; 81001; 81025; 83605; 84702; 85025; 85049; 85610; 86695; 86696; 87040; 87086; 96361; 96375; 96376; 99285

== ENCOUNTER → 2016-11-06 | Outpatient (CLI) | payer OTHER ==
[2016-11-06 09:49] LABS: CH 28.5; CHCM 34.1; HCT 35.9 % (34.0-46.0); HDW 2.77; MCH 28.1 pg (25.0-35.0); MCHC 33.4 g/dL (31.0-37.0); MCV 84.2 fL (80.0-100.0); Mean Platelet Volume 7.3; RBC 4.27 m/uL (3.80-5.40); RDW 15.8 % (11.5-15.5); WBC 12.5 k/uL (3.8-10.6)
[2016-11-06 09:57] LABS: Glucose 81 mg/dL (74-99); Non-African American GFR(MDRD) >60 (>60 ml/min/1.73 sqM)
[2016-11-06 10:28] LABS: Hepatitis B Surface Ag Index 0.07
[2016-11-06 19:05] LABS: Treponemal Ab Non-Reactive (Non-Reactive)
[2016-11-07 05:19] LABS: Toxoplasma Antibody (IgG) <3.0 IU/mL (<7.2)
== END | disposition home or self-care (01) ==
LOC: LABWHC1 09:29
PROVIDERS: ATTEND Obstetrics & Gynecology
DX: Z34.82 Encounter for supervision of other normal pregnancy, second trimester (principal); Z3A.00 Weeks of gestation of pregnancy not specified
CPT/HCPCS: 36415; 82565; 82947; 85027; 86762; 86777; 86778; 86780; 86850; 86900; 86901; 87340

== ENCOUNTER 2017-01-13 16:06 | Emergency (ER) | payer OTHER ==
[2017-01-13 16:10] VITALS: RESP 18
--- NOTE | 2017-01-13 16:24 | ED ---
General Adult HPI - General Chief complaint: Skin/Abscess/Foreign Body Stated complaint: Abcess on Tailbone Time Seen by Provider: 01/13/17 16:23 Source: patient Mode of arrival: ambulatory Limitations: no limitations - History of Present Illness Initial comments: She is a 26-year-old female with recent history of recurrent pilonidal cysts who presents to the emergency Department today with complaint of recurrent pilonidal abscess. Reports that she was seen in the emergency department a couple weeks ago, she had an incision and drainage of an abscess at that time and was discharged home. She reports that over the past week she's noticed a reaccumulation of fluid and significant tenderness in the left rear aspect of the gluteal cleft. She reports she's been trying to manage the pain at home with Tylenol, hot compresses and positioning however she feels a swelling getting worse and she can no longer sit in any position of comfort. She reports that she has not yet seen a surgeon for this because she is currently 30 weeks not a candidate for elective surgery. A that she plans to follow up with a surgeon after she gives for definitive management of the recurrent pilonidal cysts. denies any complaints aside from the cyst. She denies any fevers, chills , nausea, vomiting. She denies any chest pain or shortness of breath. She does report mild fatigue but attributes this to the and feels that it is normal for her. - Related Data Home Medications Medication Instructions Recorded Confirmed Albuterol Inhaler [Ventolin Hfa 1 - 2 puff INHALATION RT-Q6H PRN 01/13/17 Inhaler] Allergies Allergy/AdvReac Type Severity Reaction Status Date / Time No Known Allergies Allergy Verified 01/13/17 16:16 Review of Systems ROS Statement: Those systems with pertinent positive or pertinent negative responses have been documented in the HPI. ROS Other: All systems not noted in ROS Statement are negative. Constitutional: Denies: fever, chills ENT: Denies: throat pain Respiratory: Denies: cough, dyspnea Cardiovascular: Denies: chest pain, palpitations Endocrine: Reports: fatigue Gastrointestinal: Denies: abdominal pain, nausea, vomiting Genitourinary: Denies: urgency, dysuria, discharge Musculoskeletal: Denies: back pain Skin: Reports: lesions, change in color Neurological: Denies: headache, weakness Psychiatric: Denies: anxiety, depression Hematological/Lymphatic: Denies: easy bleeding, easy bruising Past Medical History Past Medical History: Asthma, Sleep Apnea/CPAP/BIPAP Additional Past Medical History / Comment(s): migraines, pilonidal abcess, anx/ depression. pt is "27 weeks " History of Any Multi-Drug Resistant Organisms: None Reported Past Surgical History: Section Additional Past Surgical History / Comment(s): uppp sx for sleep apnea Past Anesthesia/Blood Transfusion Reactions: Postoperative Nausea & Vomiting ( PONV) Past Psychological History: Anxiety, Depression Smoking Status: Never smoker Past Alcohol Use History: None Reported Past Drug Use History: None Reported - Past Family History Father Family Medical History: Unable to Obtain Additional Family Medical History / Comment(s): pt was adopted Mother Family Medical History: Unable to Obtain Additional Family Medical History / Comment(s): pt was adopted General Exam Limitations: no limitations General appearance: alert, obese, other (Appears uncomfortable) Head exam: Present: atraumatic, normocephalic Eye exam: Present: normal appearance, PERRL ENT exam: Present: normal exam Neck exam: Present: normal inspection Respiratory exam: Present: other (Decreased breath sounds at bilateral bases secondary to body habitus/). Absent: respiratory distress Cardiovascular Exam: Present: regular rate, normal rhythm GI/Abdominal exam: Present: soft, other (Palpable uterus) Rectal exam: Present: deferred Extremities exam: Present: normal inspection, full ROM Back exam: Present: normal inspection, full ROM Neurological exam: Present: alert, oriented X3 Psychiatric exam: Present: normal affect Skin exam: Present: warm, dry, other (Abscess superior aspect of the gluteal cleft on the left buttock, a well-healed incision is visible, consistent with recent incision and drainage of abscess) Course Vital Signs 01/13/17 01/13/17 16:07 17:43 Temperature 97 F L 98.9 F Pulse Rate 96 75 Respiratory 18 18 Rate Blood Pressure 116/67 134/80 O2 Sat by Pulse 96 98 Oximetry Procedures - Incision & Drainage Consent Obtained: verbal consent, written consent Time Out Performed?: Yes Site: buttock Anesthetic Used: lidocaine 1% I&D Cleaning Method: Betadine Scalpel Used: #11 Needle Aspiration Performed?: Yes Irrigation Performed?: No I&D Drainage Obtained: Pus, Blood Culture Obtained?: No Patient Tolerated Procedure: well Medical Decision Making - Medical Decision Making Patient was seen and evaluated, history obtained from patient and previous medical records Patient with recurrent pilonidal cyst abscess, presents today with recurrent pilonidal abscess Patient denies any systemic symptoms including fevers, chills, nausea, vomiting and generalized malaise Verbal and written consent were obtained for an incision and drainage of the abscess Considering that the patient is she was laid in the left lateral decubitus position, I&D was performed, a large volume of purulent fluid was drained in the wound was packed with iodoform gauze. Patient tolerated procedure well. Procedure began 17:05, ended at 17:15 Patient was advised to pull approximately 1 cm of the packing out daily, trim the packing and reapply dressing. Patient was given dressing materials for this. I advised the patient that she should follow-up with a general surgeon regardless of being to establish care and plan for surgical repair of the recurrent pilonidal cysts after delivery of her child. Patient expressed understanding of this plan. All questions pertaining to care answered to the best of my ability patient was discharged home in stable condition. Disposition Clinical Impression: Pilonidal abscess of cleft Disposition: HOME SELF-CARE Condition: Good Instructions: Abscess Incision and Drainage (ED) Additional Instructions: Remove 1cm of packing daily, trim the packing and place a dressing over the abscess Referrals: Aris Saunders MD [Primary Care Provider] - 1-2 days Molly Willett MD [STAFF PHYSICIAN] - 1-2 days Shadi Granger MD [STAFF PHYSICIAN] - 1-2 days Time of Disposition: 17:17
[2017-01-13 17:44] VITALS: BP 134/80; PULSE 75; TEMP 98.9
== END 2017-01-13 17:44 | disposition home or self-care (01) ==
LOC: EC 16:06
DX: O99.713 Diseases of the skin and subcutaneous tissue complicating pregnancy, third trimester (principal); L05.01 Pilonidal cyst with abscess; Z3A.30 30 weeks gestation of pregnancy
CPT/HCPCS: 10081; 99283

== ENCOUNTER 2017-03-19 10:00 | Inpatient (IN) | payer OTHER ==
[2017-03-18 14:42] VITALS: BMI 44.6
[2017-03-19] MEDS ORDERED: CITRIC ACID-SODIUM CITRATE 15 ML CUP PO ONE (10:34)
[2017-03-19] MEDS ORDERED: ceFAZolin IN SWFI 2 GM/20 ML SYRINGE IVP ONE (10:34)
[2017-03-19] MEDS: LACTATED RINGERS 1,000 ML IV SCH ×2 (11:33→11:34)
[2017-03-19 11:49] LABS: Basophils % (A) 0 %; Eosinophils # (A) 0.1 k/uL (0-0.7); Eosinophils % (A) 1 %; HCT 31.3 % (34.0-46.0); HGB 9.8 gm/dL (11.4-16.0); Hypochromasia Moderate; Lymphocytes # (A) 1.9 k/uL (1.0-4.8); Lymphocytes % (A) 19 %; MCH 24.3 pg (25.0-35.0); MCHC 31.2 g/dL (31.0-37.0); MCV 77.9 fL (80.0-100.0); Mean Platelet Volume 6.7; Monocytes # (A) 0.3 k/uL (0-1.0); Monocytes % (A) 3 %; Neutrophils # (A) 7.5 k/uL (1.3-7.7); Neutrophils % (A) 76 %; Platelet Count 339 k/uL (150-450); RBC 4.02 m/uL (3.80-5.40); RDW 15.4 % (11.5-15.5); WBC 9.9 k/uL (3.8-10.6)
[2017-03-19] MEDS ORDERED: OXYTOCIN 10 UNIT/ML 1 ML VIAL ONE (11:59)
[2017-03-19] MEDS ORDERED: LACTATED RINGERS 1,000 ML BAG IV ONE (11:59)
[2017-03-19] MEDS ORDERED: KETOROLAC 30 MG/ML 1 ML VIAL ONE (11:59)
[2017-03-19] MEDS ORDERED: MORPHINE SULFATE (PF) 0.3 MG/0.3 ML SYR ONE (11:59)
[2017-03-19] MEDS ORDERED: DEXAMETHASONE SOD PHOS (MDV) 100 MG/10 ML VIAL ONE (11:59)
[2017-03-19] MEDS ORDERED: ONDANSETRON 4 MG/2 ML VIAL ONE (11:59)
[2017-03-19] MEDS ORDERED: ePHEDrine SULFATE/0.9% NACL/PF 50 MG/5 ML SYRINGE IV ONE (11:59)
[2017-03-19] MEDS ORDERED: NALBUPHINE 10 MG/ML AMPUL IV PRN (12:20)
[2017-03-19] MEDS ORDERED: diphenhydrAMINE 50 MG/ML 1 ML VIAL IVP PRN ×3 (12:20→12:42)
[2017-03-19] MEDS ORDERED: NALOXONE 0.4 MG/ML 1 ML VIAL IV PRN ×2 (12:20→12:42)
[2017-03-19] MEDS ORDERED: KETOROLAC 30 MG/ML 1 ML VIAL IVP PRN (12:20)
[2017-03-19] MEDS ORDERED: ONDANSETRON 4 MG/2 ML VIAL IVP PRN ×2 (12:20→12:42)
[2017-03-19] MEDS ORDERED: MORPHINE SULFATE 2 MG/ML SYRINGE IVP PRN (12:20)
[2017-03-19] MEDS ORDERED: ZOLPIDEM 5 MG TAB PO PRN (12:42)
[2017-03-19] MEDS ORDERED: diphenhydrAMINE 50 MG CAP PO PRN (12:42)
[2017-03-19] MEDS ORDERED: SIMETHICONE 80 MG CHEWABLE PO PRN (12:42)
[2017-03-19] MEDS ORDERED: diphenhydrAMINE 25 MG CAP PO PRN (12:42)
[2017-03-19] MEDS ORDERED: ACETAMINOPHEN TAB 325 MG TAB PO PRN (12:42)
[2017-03-19] MEDS ORDERED: METOCLOPRAMIDE 5 MG/ML 2 ML VIAL IVP PRN (12:42)
[2017-03-19] MEDS ORDERED: Acetaminophen-Codeine 300-30mg TAB PO PRN (12:42)
[2017-03-19] MEDS ORDERED: LACTATED RINGERS 1,000 ML IV SCH (12:45)
--- NOTE | 2017-03-19 12:46 | P.HPOB ---
History of Present Illness H&P Date: 03/19/17 Chief Complaint: Intrauterine at term: Previous sections Patient is a 26-year-old at 39 weeks gestation who arrives low-transverse section with tubal ligation. Risks/benefits/alternatives to this procedure were discussed with patient in detail and all questions are answered for her prior to proceeding to the operating room. Her course was complicated by delay in doing her Glucola screen likely she was gestational diabetic. However she did not do her 3 hour until approximately 36 weeks which she failed she did have a hemoglobin A1c was done that was normal. However she has been measuring large and we expect this baby to be somewhat larger. On physical exam vital signs are stable and afebrile. Heart regular, lungs clear, extremities are without pain. Osteopathic exam is unremarkable. Abdomen is soft gravid uterus is noted. heart tones in the 140s and reactive. Assessment intrauterine at term with family planning. Plan repeat low transverse section with bilateral partial salpingectomy. Past Medical History Past Medical History: Asthma, Sleep Apnea/CPAP/BIPAP Additional Past Medical History / Comment(s): migraines, pilonidal abcess - drained a couple months ago- no drainage now., Increased Asthma symptoms during , pt adopted -unknown family hx.. History of Any Multi-Drug Resistant Organisms: None Reported Past Surgical History: Section Additional Past Surgical History / Comment(s): uppp sx for sleep apnea Past Anesthesia/Blood Transfusion Reactions: Motion Sickness, Postoperative Nausea & Vomiting (PONV) Additional Past Anesthesia/Blood Transfusion Reaction / Comment(s): pt adopted . Past Psychological History: Anxiety, Depression Smoking Status: Former smoker Past Alcohol Use History: Occasional Additional Past Alcohol Use History / Comment(s): QUIT SMOKING MAY 2016 DURING . HX OF SMOKING SINCE 19 YRS OLD, 1 PACK EVERY 1 1/2 WEEKS. NO ALCOHOL DURING Past Drug Use History: Marijuana Additional Drug Use History / Comment(s): STATES MARIJUANA CARD FOR DEPRESSION & ANXIETY & SLEEP APNEA- STATES NO MARIJUANA DURING . - Past Family History Father Family Medical History: Unable to Obtain Additional Family Medical History / Comment(s): pt was adopted Mother Family Medical History: Unable to Obtain Additional Family Medical History / Comment(s): pt was adopted Medications and Allergies Home Medications Medication Instructions Recorded Confirmed Type Acetaminophen Tab [Tylenol Tab] 650 mg PO Q6H 03/18/17 03/19/17 History Albuterol Inhaler [Ventolin Hfa 1 - 2 puff INHALATION Q6HR PRN 03/18/17 History Inhaler] Allergies Allergy/AdvReac Type Severity Reaction Status Date / Time No Known Allergies Allergy Verified 03/19/17 10:33 Exam Osteopathic Statement: *. No significant issues noted on an osteopathic structural exam other than those noted in the History and Physical/Consult. - Vital Signs Vital signs: Vital Signs Temp Pulse Resp BP 03/19/17 10:33 98.2 F 76 16 115/67 Intake and Output 03/18/17 03/19/17 03/19/17 22:59 06:59 14:59 Other: Weight 117.934 kg Patient Weight 03/20/17 06:59 Weight 117.934 kg Results Result Diagrams: 03/19/17 11:12 Abnormal Lab Results - Last 24 Hours (Table) 03/19/17 Range/Units 11:12 Hgb 9.8 L (11.4-16.0) gm/dL Hct 31.3 L (34.0-46.0) % MCV 77.9 L (80.0-100.0) fL MCH 24.3 L (25.0-35.0) pg
--- NOTE | 2017-03-19 12:51 | P.OP ---
Date of Procedure: 03/19/17 Preoperative Diagnosis: Intrauterine at term: Previous section: Family planning Postoperative Diagnosis: Same Procedure(s) Performed: Repeat low transverse section with bilateral partial salpingectomy Anesthesia: spinal Surgeon: Kilo Rdz Retoucher #1: Ab Aguilera Estimated Blood Loss (ml): 600 IV fluids (ml): 1,000 Urine output (ml): 600 Pathology: other (Placenta) Condition: stable Disposition: floor Operative Findings: Male scores of 8 and 9 at one and 5 minutes respectively and the weight was 9 lbs. 13 oz. Description of Procedure: Patient was taken to the operating suite where a general anesthetic was found to be adequate she was prepped and draped in the normal sterile fashion and placed in dorsal supine position with leftward tilt. Initially a Pfannenstiel skin incision was made and this incision was then carried through to the underlying layer of the fascia with a second knife. Fascia was then nicked in the midline and this opening was extended laterally with De La Fuente scissors. Superior and inferior aspect of this incision were then grasped tented up and bluntly and sharply dissected off the rectus muscles. Rectus muscles were then divided in the midline and sharp dissection through the peritoneum was made. This opening was then extended superiorly and inferiorly with good visualization of both bowel bladder. Bladder blade was then placed and the bladder flap identified. It was entered sharply with Metzenbaum scissors and carried across the face of the uterus with Metzenbaum scissors. Knife was then used to incise uterus hemostat was used to complete the opening and the opening was then extended bluntly pad. Head was then atraumatically delivered and mouth nares bulb suctioned. Anterior and posterior shoulders were then delivered with gentle downward upper traction followed by the remainder the baby. Mouth nares were again bulb suctioned and the umbilical cord was clamped and cut in usual fashion. Nursery personnel was present to assume care. Placenta was then delivered intact and Pitocin was added to the IV. Uterus was then exteriorized cleared of clots and debris and closed in 2 layers with 0 Vicryl suture. Once excellent hemostasis was obtained hemostats were placed on both the right tube than the left tube 3 cm from uterine cornu and a window was created in the mesosalpinx. 2 proximal and 2 distal 2-0 silk sutures were then tied 2 cm apart with the intervening segment excised bilaterally. Tips were cauterized. Blood and debris was then suctioned from the posterior cul-de-sac and the uterus was reinserted into the abdomen. Gutters were cleared. Peritoneal layer was then closed with 0 Vicryl suture fascial layer was closed with 0 Vicryl suture one layer of 3-0 Vicryl was used to reapproximate the subcuticular tissues and the skin was then closed with 3-0 Vicryl on a Zoltan needle. Sponge, lap, needle counts were all correct 2. Patient was then taken to the recovery room in stable and satisfactory condition.
[2017-03-19] MEDS: SENNOSIDES-DOCUSATE SODIUM 1 EACH TAB PO SCH (21:35)
[2017-03-20] MEDS ORDERED: METOCLOPRAMIDE 5 MG/ML 2 ML VIAL ONE
[2017-03-20] MEDS ORDERED: LACTATED RINGERS 1,000 ML BAG IV ONE
[2017-03-20] MEDS ORDERED: KETOROLAC 30 MG/ML 1 ML VIAL ONE
--- NOTE | 2017-03-20 07:28 | P.PN ---
Progress Note - Text Progress Note Date: 03/20/17 Patient is a 26 s/p C/S under spinal anesthesia with duramorh for post op pain control. Patient initially nauseous relieved by Reglan. Only requiring toradol for pain control. Ambulating without weakness.
--- NOTE | 2017-03-20 08:43 | P.PNOBGPC ---
Subjective - Subjective Principal diagnosis: Postop day 1 Interval history: Overall doing very well. Involuting and voiding. Tolerating her diet. Patient reports: Reports appetite normal, Reports voiding normally, Reports pain well controlled, Reports ambulating normally : in NICU Objective - Vital Signs Latest vital signs: Vital Signs Temp Pulse Resp BP Pulse Ox 03/20/17 05:00 16 98 03/20/17 04:00 97.7 F 65 16 119/64 97 03/20/17 03:00 16 03/20/17 01:00 16 98 03/20/17 00:00 98.5 F 68 16 116/63 98 03/19/17 23:00 16 03/19/17 20:54 16 99 03/19/17 20:00 98.0 F 93 16 139/75 99 03/19/17 19:00 18 03/19/17 17:20 98 03/19/17 17:00 18 03/19/17 16:00 97.6 F 63 20 131/75 96 03/19/17 14:57 60 18 120/73 03/19/17 14:54 60 18 120/73 03/19/17 14:27 59 L 18 115/77 03/19/17 13:57 97.5 F L 58 L 18 108/69 03/19/17 13:42 67 18 117/68 03/19/17 13:27 63 16 112/63 03/19/17 13:20 64 16 112/63 98 03/19/17 13:12 65 16 118/56 03/19/17 13:06 98 03/19/17 13:05 97.6 F 77 16 121/63 03/19/17 12:57 97.6 F 77 16 121/63 03/19/17 10:33 98.2 F 76 16 115/67 Intake and Output 03/19/17 03/20/17 03/20/17 22:59 06:59 14:59 Output Total 500 450 Balance -500 -450 Output: Urine 500 450 Uretheral (Francis) 100 Other: # Voids 0 1 - Exam Lungs: bilateral: normal Chest: Normal S1, Normal S2 Extremities: Present: normal Abdomen: Present: normal appearance, soft. Absent: distention, tenderness Incision: Present: normal, dry, intact Uterus: Present: normal, firm - Labs Labs: Abnormal Lab Results - Last 24 Hours (Table) 03/19/17 Range/Units 11:12 Hgb 9.8 L (11.4-16.0) gm/dL Hct 31.3 L (34.0-46.0) % MCV 77.9 L (80.0-100.0) fL MCH 24.3 L (25.0-35.0) pg
[2017-03-20] MEDS: SENNOSIDES-DOCUSATE SODIUM 1 EACH TAB PO SCH ×2 (10:33→22:23)
[2017-03-20 10:53] LABS: Basophils % (A) 0 %; Eosinophils % (A) 0 %; HCT 28.2 % (34.0-46.0); HGB 8.5 gm/dL (11.4-16.0); Hypochromasia Moderate; Lymphocytes # (A) 2.2 k/uL (1.0-4.8); Lymphocytes % (A) 17 %; MCH 24.1 pg (25.0-35.0); MCHC 30.2 g/dL (31.0-37.0); MCV 79.8 fL (80.0-100.0); Mean Platelet Volume 6.3; Monocytes # (A) 0.3 k/uL (0-1.0); Monocytes % (A) 2 %; Neutrophils # (A) 10.2 k/uL (1.3-7.7); Neutrophils % (A) 80 %; Platelet Count 324 k/uL (150-450); RBC 3.54 m/uL (3.80-5.40); RDW 15.7 % (11.5-15.5); WBC 12.7 k/uL (3.8-10.6)
[2017-03-20] MEDS: IBUPROFEN 600 MG TAB PO PRN ×2 (15:35→23:51)
[2017-03-20] MEDS: Acetaminophen-Codeine 300-30mg TAB PO PRN (22:22)
[2017-03-21] MEDS: Acetaminophen-Codeine 300-30mg TAB PO PRN ×3 (05:01→21:57)
--- NOTE | 2017-03-21 05:49 | P.PNOBGPC ---
Subjective - Subjective Patient reports: Reports appetite normal, Reports voiding normally, Reports pain well controlled, Reports ambulating normally : in NICU Objective - Vital Signs Latest vital signs: Vital Signs Temp Pulse Resp BP Pulse Ox 03/21/17 00:00 98.1 F 92 18 117/68 98 03/20/17 15:52 98.5 F 79 18 107/58 99 03/20/17 12:00 98.1 F 84 18 105/59 98 03/20/17 08:00 97.6 F 73 18 123/53 98 03/20/17 07:00 18 Intake and Output 03/20/17 03/20/17 03/21/17 14:59 22:59 06:59 Intake Total 300 Output Total 800 Balance -500 Intake: IV 300 Invasive Line 1 300 Output: Urine 800 Other: # Voids 1 - Exam Lungs: bilateral: normal Chest: Normal S1, Normal S2 Extremities: Present: normal Abdomen: Present: normal appearance, soft. Absent: distention, tenderness Incision: Present: normal, dry, intact Uterus: Present: normal, firm - Labs Labs: Abnormal Lab Results - Last 24 Hours (Table) 03/20/17 Range/Units 09:30 WBC 12.7 H (3.8-10.6) k/uL RBC 3.54 L (3.80-5.40) m/uL Hgb 8.5 L (11.4-16.0) gm/dL Hct 28.2 L (34.0-46.0) % MCV 79.8 L (80.0-100.0) fL MCH 24.1 L (25.0-35.0) pg MCHC 30.2 L (31.0-37.0) g/dL RDW 15.7 H (11.5-15.5) % Neutrophils # 10.2 H (1.3-7.7) k/uL Assessment and Plan Assessment: day #2. Patient is resting without complaints. Vital signs are stable she is afebrile. Uterus is firm nontender she's having normal lochia. My impression this is a normal course. Plan is to continue routine care, encourage ambulation. Patient's baby is in special care and therefore she may stay another day or 2 until the baby is close to going home. (1) delivery delivered Current Visit: Yes Status: Acute Code(s): O82 - ENCOUNTER FOR DELIVERY WITHOUT INDICATION SNOMED Code(s): 817290402
[2017-03-21] MEDS: IBUPROFEN 600 MG TAB PO PRN ×2 (08:50→18:02)
[2017-03-21] MEDS: IRON AG/C/B12/CA/SUC.ACID/STOM 1 EACH TAB PO SCH (08:51)
[2017-03-21] MEDS: SENNOSIDES-DOCUSATE SODIUM 1 EACH TAB PO SCH ×2 (08:51→23:48)
[2017-03-21 17:00] VITALS: RESP 16
[2017-03-22] MEDS: IBUPROFEN 600 MG TAB PO PRN ×2 (02:26→09:45)
--- NOTE | 2017-03-22 06:58 | P.PNOBGPC ---
Subjective - Subjective Patient reports: Reports appetite normal, Reports voiding normally, Reports pain well controlled, Reports ambulating normally : doing well Objective - Vital Signs Latest vital signs: Vital Signs Temp Pulse Resp BP Pulse Ox 03/22/17 00:00 98.3 F 84 16 120/69 98 03/21/17 16:00 97.8 F 87 16 118/67 98 03/21/17 08:00 97.8 F 84 17 119/61 98 - Exam Lungs: bilateral: normal Chest: Normal S1, Normal S2 Extremities: Present: normal Abdomen: Present: normal appearance, soft. Absent: distention, tenderness Incision: Present: normal, dry, intact Uterus: Present: normal, firm Assessment and Plan Assessment: Post operative day #3. Patient is resting without complaints and wishes to go home. Vital signs are stable and she is afebrile. Uterus is firm nontender she 's having normal lochia. Incision is intact and dry. My impression is a normal course. Plan is to continue routine postoperative care and discharge home later today. (1) delivery delivered Current Visit: Yes Status: Acute Code(s): O82 - ENCOUNTER FOR DELIVERY WITHOUT INDICATION SNOMED Code(s): 836347972
--- NOTE | 2017-03-22 07:01 | P.DS ---
Providers Date of admission: 03/19/17 10:00 Expected date of discharge: 03/22/17 Attending physician: Kilo Rdz Primary care physician: Aris Saunders - Discharge Diagnosis(es) (1) delivery delivered Current Visit: Yes Status: Acute Hospital Course: Please see dictated H&P per Dr. Wiggins and this patient's admission. Brief summary this is a pleasant 26-year-old 3 para 2 female admitted on March 19 for repeat section and tubal ligation. Patient undergoes above-named surgery. By postoperative #3 patient's felt to be stable for discharge home follow up with Dr. Wiggins in 1 week. Procedures: Repeat low transverse section and bilateral partial salpingectomy. Patient Condition at Discharge: Good Plan - Discharge Summary Discharge Rx Participant: No New Discharge Prescriptions: New Acetaminophen-Codeine 300-30mg [Tylenol w/codeine #3] 1 - 2 each PO Q4HR PRN #30 tab PRN Reason: Mild Pain Ibuprofen [Motrin] 600 mg PO Q6HR PRN #40 tab PRN Reason: Mild Pain Or Fever >= 100.5 Iron Ag/C/B12/Ca/Suc.acid/Stom [Chromagen LF] 1 each PO DAILY #30 tab No Action Albuterol Inhaler [Ventolin Hfa Inhaler] 1 - 2 puff INHALATION Q6HR PRN PRN Reason: Headache Acetaminophen Tab [Tylenol Tab] 650 mg PO Q6H Discharge Medication List Acetaminophen Tab [Tylenol Tab] 650 mg PO Q6H 03/18/17 [History] Albuterol Inhaler [Ventolin Hfa Inhaler] 1 - 2 puff INHALATION Q6HR PRN [History] Acetaminophen-Codeine 300-30mg [Tylenol w/codeine #3] 1 - 2 each PO Q4HR PRN # 30 tab 03/21/17 [Rx] Ibuprofen [Motrin] 600 mg PO Q6HR PRN #40 tab 03/21/17 [Rx] Iron Ag/C/B12/Ca/Suc.acid/Stom [Chromagen LF] 1 each PO DAILY #30 tab 03/21/17 [ Rx] Follow up Appointment(s)/Referral(s): Kilo Rdz DO [Doctor of Osteopathic Medicine] - 03/25/17 10:00 am (Patient also has a visit with Dr. Wiggins on May 02 at 2:45 PM.) Patient Instructions/Handouts: (DC) Activity/Diet/Wound Care/Special Instructions: No intercourse for 6 weeks. No strenuous activity or lifting for 6 weeks. Please call if any fever, chills, excessive vaginal bleeding, and/or abdominal pain. Discharge Disposition: HOME SELF-CARE
[2017-03-22] MEDS: Acetaminophen-Codeine 300-30mg TAB PO PRN (07:06)
[2017-03-22 08:55] VITALS: BP 108/68; PULSE 86; TEMP 98
[2017-03-22] MEDS: IRON AG/C/B12/CA/SUC.ACID/STOM 1 EACH TAB PO SCH (09:45)
[2017-03-22] MEDS: SENNOSIDES-DOCUSATE SODIUM 1 EACH TAB PO SCH (09:45)
== END 2017-03-22 12:30 | disposition home or self-care (01) | DRG 765 ==
LOC: 4FBP 10:00
PROVIDERS: ADMIT Obstetrics & Gynecology; ATTEND Obstetrics & Gynecology
PROC: 0UB70ZZ Excision of Bilateral Fallopian Tubes, Open Approach (ICD-10-PCS; 2017-03-19)
PROC: 10D00Z1 Extraction of Products of Conception, Low, Open Approach (ICD-10-PCS; principal; 2017-03-19 11:59)
DX: O34.211 Maternal care for low transverse scar from previous cesarean delivery (principal); O99.354 Diseases of the nervous system complicating childbirth; O99.344 Other mental disorders complicating childbirth; O24.429 Gestational diabetes mellitus in childbirth, unspecified control; F32.9 Major depressive disorder, single episode, unspecified; F41.9 Anxiety disorder, unspecified; G47.30 Sleep apnea, unspecified; J45.909 Unspecified asthma, uncomplicated; O99.52 Diseases of the respiratory system complicating childbirth; G43.909 Migraine, unspecified, not intractable, without status migrainosus; R11.0 Nausea; O99.62 Diseases of the digestive system complicating childbirth; Z37.0 Single live birth; Z3A.39 39 weeks gestation of pregnancy; Z87.891 Personal history of nicotine dependence
CPT/HCPCS: 85025; 86850; 86900; 86901; 88302; 88307

== ENCOUNTER 2018-07-13 22:16 | Emergency (ER) | payer OTHER ==
--- NOTE | 2018-07-13 22:28 | ED ---
ENT HPI - General Chief complaint: Dental/Oral Stated complaint: Dental Pain Time Seen by Provider: 07/13/18 22:27 Source: patient Mode of arrival: ambulatory Limitations: no limitations - History of Present Illness Initial comments: GABINO is a 28-year-old female who presents the emergency department today for evaluation of left was some to pain. Patient reports she's been dealing with pain in her left lower wisdom tooth off-and-on for a number of years. She reports she has episodes of really bad pain but it usually resolves with Motrin. Patient reports that for 2 days she's had instant pain with no relief. Patient states she's been unable to have her wisdom teeth removed because during previous episode she was . She states that she'll be contacting her dentist tomorrow for follow-up for extraction. describes the pain as sharp zapping like something is touching her nerve. - Related Data Home Medications Medication Instructions Recorded Confirmed Citalopram Hydrobromide [CeleXA] 10 mg PO DAILY 07/13/18 07/13/18 busPIRone HCl [Buspar] 5 mg PO DAILY PRN 07/13/18 07/13/18 Allergies Allergy/AdvReac Type Severity Reaction Status Date / Time No Known Allergies Allergy Verified 07/13/18 22:29 Review of Systems ROS Statement: Those systems with pertinent positive or pertinent negative responses have been documented in the HPI. ROS Other: All systems not noted in ROS Statement are negative. Past Medical History Past Medical History: Asthma, Sleep Apnea/CPAP/BIPAP Additional Past Medical History / Comment(s): migraines, pilonidal abcess - drained a couple months ago- no drainage now., Increased Asthma symptoms during , pt adopted -unknown family hx.. History of Any Multi-Drug Resistant Organisms: None Reported Past Surgical History: Section Additional Past Surgical History / Comment(s): uppp sx for sleep apnea Past Anesthesia/Blood Transfusion Reactions: Motion Sickness, Postoperative Nausea & Vomiting (PONV) Additional Past Anesthesia/Blood Transfusion Reaction / Comment(s): pt adopted . Past Psychological History: Anxiety, Depression Smoking Status: Current every day smoker Past Alcohol Use History: Occasional Past Drug Use History: Marijuana - Past Family History Father Family Medical History: Unable to Obtain Additional Family Medical History / Comment(s): pt was adopted Mother Family Medical History: Unable to Obtain Additional Family Medical History / Comment(s): pt was adopted General Exam - General Exam Comments Initial Comments: Physical Exam GENERAL: Patient is well-developed and well-nourished. Patient is nontoxic and well-hydrated and is in no distress. HENT: Normocephalic, Atraumatic. Good dentition no obvious dental caries, healthy gums with no signs of gingivitis or infection left wisdom tooth is noted to be erupting through the gums Palpation of the pupil mucosa is normal with no pain or tenderness in the salivary glands EYES: PERRL, EOMI PULMONARY: Unlabored respirations. CARDIOVASCULAR: RRR ABDOMEN: Nondistended SKIN: Skin is clear with no lesions or rashes and otherwise unremarkable. : Deferred NEUROLOGIC: Patient is alert and oriented x3. Moving all extremities spontaneously MUSCULOSKELETAL: Normal extremities with adequate strength and full range of motion. No lower extremity swelling or edema. No calf tenderness. PSYCHIATRIC: Normal psychiatric evaluation. Limitations: no limitations Course Vital Signs 07/13/18 07/13/18 22:20 23:52 Temperature 97.8 F 97.3 F L Pulse Rate 76 61 Respiratory 18 16 Rate Blood Pressure 123/66 129/83 O2 Sat by Pulse 97 99 Oximetry Procedures - Nerve Block Consent Obtained: verbal consent Local Anesthetic Used: Marcaine 0.5% Amount of anesthesia used: 3 Side: left Intraoral Nerve Block: inferior alveolar Procedure Successful: Yes Complications: none Patient Tolerated Procedure: well Medical Decision Making - Medical Decision Making She was seen and evaluated history is obtained from patient, physical exam does reveal interrupting left uvular wisdom tooth. No signs of infection or abscess I discussed treatment options with the patient and offered a dental block, patient is agreeable to this. A left inferior alveolar dental block with 3 mL of a 5050 mixture of lidocaine and bupivacaine was administered, patient had good analgesia with this and was subtotally discharge home. Disposition Clinical Impression: Pain, dental Disposition: HOME SELF-CARE Condition: Stable Instructions (If sedation given, give patient instructions): Toothache (ED) Is patient prescribed a controlled substance at d/c from ED?: No Referrals: Aris Saunders MD [Primary Care Provider] - 1-2 days
[2018-07-13] MEDS ORDERED: LIDOCAINE 1% INJ 10MG/ML (20 ML MDV) SQ ONE (22:48)
[2018-07-13] MEDS ORDERED: BUPIVACAINE (PF) 0.5% 30 ML VIAL SQ STA (22:48)
[2018-07-13 23:53] VITALS: BP 129/83; PULSE 61; RESP 16; TEMP 97.3
== END 2018-07-13 23:56 | disposition home or self-care (01) ==
LOC: EC 22:16
DX: K08.89 Other specified disorders of teeth and supporting structures (principal); F41.9 Anxiety disorder, unspecified; F32.9 Major depressive disorder, single episode, unspecified; F17.200 Nicotine dependence, unspecified, uncomplicated; G47.30 Sleep apnea, unspecified; Z99.89 Dependence on other enabling machines and devices; Z79.899 Other long term (current) drug therapy
CPT/HCPCS: 99282; 64400; J2001